=== PATIENT | female | born 1970 | race Caucasian/White ===

== ENCOUNTER 2019-01-03 19:28 | Emergency (ER) | payer SELFPAY ==
[2019-01-03] MEDS ORDERED: Insulin Regular 300 UNITS/3 ML VIAL ONE (20:20)
== END 2019-01-03 20:56 ==
LOC: ERS 19:28
DX: E11.65 Type 2 diabetes mellitus with hyperglycemia (principal); F41.9 Anxiety disorder, unspecified; I10 Essential (primary) hypertension; E78.00 Pure hypercholesterolemia, unspecified; F32.9 Major depressive disorder, single episode, unspecified; Z79.4 Long term (current) use of insulin; Z79.899 Other long term (current) drug therapy
CPT/HCPCS: 36416; 99282; J1815

== ENCOUNTER 2019-01-06 14:24 | Emergency (ER) | payer MEDICARE ==
[2019-01-06 15:53] LABS: #Lymphocytes 1.3 thou/uL (1.20-3.40); #Monocytes 0.4 thou/uL (0.11-0.59); #Neutrophils 4.8 thou/uL (1.40-6.50); %Basophils 0.7 % (0.0-1.0); %Eosinophils 0.1 % (0.0-10.0); %Lymphocytes 20.4 % (21.0-51.0); %Monocytes 5.5 % (0.0-10.0); %Neutrophils 73.3 % (42.0-75.0); Hemoglobin 14.5 g/dL (12.0-16.0); Mean Corpuscular HGB CONC 34.6 g/dL (32.0-36.0); Mean Corpuscular Hemoglobin 31.4 pg (27.0-31.0); Mean Corpuscular Volume 90.8 fL (78.0-98.0); Mean Platelet Volume 8.3 fL (7.4-10.4); Platelet Count 329 thou/uL (130-400); RBC Distribution Width 11.5 % (11.5-14.5); Red Blood Cell (RBC) Count 4.62 mill/uL (4.20-5.40); White Blood Cell (WBC) Count 6.5 thou/uL (4.8-10.8)
[2019-01-06] MEDS ORDERED: clonazePAM 1 MG TAB ONE (15:55)
[2019-01-06 16:16] LABS: Bilirubin Negative (Negative); Blood, Urine Negative (Negative); Clarity CLEAR (Clear); Glucose, Urine (Dipstick) >=1000 mg/dL (Negative); Leukocyte Negative (Negative); Nitrite Negative (Negative); Protein, Urine (Dipstick) Negative (Neg-Trace); Specific Gravity, Urine 1.029 (1.002-1.036); Urobilinogen 0.2 mg/dL (0.2-1.0)
[2019-01-06 16:18] LABS: Pregnancy Test - Urine (BHCG) Negative (Negative); Pregu Control Background? CLEAR/WHITE (CLR/WHITE); Pregu Control Bar Appear? YES (CONTROL BAR); Specific Gravity 1.029 (1.002-1.036)
[2019-01-06 16:18] LABS: Acetaminophen Less than 6.0 mcg/mL (10.0-30.0); Alcohol Less than 10 mg/dL (Less than 10); CK (CPK) 47 U/L (29-168); Salicylate Less than 8.0 mg/dL (15.0-30.0)
[2019-01-06 16:21] LABS: ALT (SGPT) 31 U/L (8-55); AST (SGOT) 19 U/L (5-34); Albumin 4.2 g/dL (3.5-5.0); Alkaline Phosphatase 196 U/L (40-150); Anion Gap 13 mmol/L (10-20); BUN (Urea Nitrogen) 16 mg/dL (7.0-18.7); Bilirubin, Total 0.3 mg/dL (0.2-1.2); Calc. Creatinine Clearance 0 mL/min (70-130); Calcium 10.1 mg/dL (7.8-10.44); Carbon Dioxide 21 mmol/L (22-29); Chloride 103 mmol/L (98-107); Estimated GFR-MDRD 53; Glucose 442 mg/dL (70-105); Lipase 40 U/L (8-78); Potassium 4.4 mmol/L (3.5-5.1); Protein, Total 7.2 g/dL (6.0-8.3); Sodium 133 mmol/L (136-145)
[2019-01-06 16:25] LABS: Amphetamine Detected (NotDetected); Barbiturates Screen Not Detected (NotDetected); Benzodiazepine Screen Not Detected (NotDetected); Cocaine Metabolite Screen Not Detected (NotDetected); Medtox Reader # READER 4; Methadone Not Detected (NotDetected); Methamphetamine Not Detected (NotDetected); Opiate Screen Not Detected (NotDetected); Phencyclidine (PCP) Not Detected (NotDetected); THC/Cannabinoid Screen Not Detected (NotDetected); Tricyclic Screen Not Detected (NotDetected)
[2019-01-06 16:26] LABS: Medtox Control Line Valid? VALID (VALID); Oxycodone Screen Not Detected (NotDetected)
--- NOTE | 2019-01-06 16:29 | RAD ---
AP VIEW CHEST: 01/06/19 HISTORY: Chest pain. Anxiety. AP view chest is obtained on 01/06/19. The lungs are well aerated. No evidence of active intrathoracic disease seen. No evidence of effusion s, pneumonia or pneumothorax seen. IMPRESSION: Unremarkable AP view chest. POS: [facility]
== END 2019-01-06 17:39 ==
LOC: ERS 14:24
DX: F41.9 Anxiety disorder, unspecified (principal); L02.213 Cutaneous abscess of chest wall; F15.10 Other stimulant abuse, uncomplicated; Z60.9 Problem related to social environment, unspecified; E11.9 Type 2 diabetes mellitus without complications; E78.00 Pure hypercholesterolemia, unspecified; F32.9 Major depressive disorder, single episode, unspecified; I10 Essential (primary) hypertension; Z79.4 Long term (current) use of insulin; Z79.899 Other long term (current) drug therapy
CPT/HCPCS: 36415; 36416; 71045; 80053; 80306; 80307; 81003; 81025; 82550; 83605; 83690; 84484; 85025; 93005; 94760

== ENCOUNTER 2019-01-10 14:02 | Emergency (ER) | payer MEDICARE, OTHER ==
[2019-01-10] MEDS ORDERED: Naproxen 500 MG TAB ONE (15:23)
--- NOTE | 2019-01-10 15:38 | RAD ---
LEFT ANKLE RADIOGRAPHS 3 VIEWS: DATE: 01/10/2019. PROVIDED CLINICAL HISTORY: Left ankle pain. FINDINGS: No comparisons. Remote ununited mildly distracted medial malleolar fracture. No evidence for an acu te fracture. Plantar calcaneal enthesophyte formation is noted. Alignment appears otherwise anatomi c. Joint spaces appear preserved. IMPRESSION: Remote ununited medial malleolar fracture. POS: [facility]
== END 2019-01-10 16:05 | disposition home or self-care (01) ==
LOC: ERS 14:02
DX: S82.52XA Displaced fracture of medial malleolus of left tibia, initial encounter for closed fracture (principal); E11.9 Type 2 diabetes mellitus without complications; E78.5 Hyperlipidemia, unspecified; I10 Essential (primary) hypertension; F32.9 Major depressive disorder, single episode, unspecified; F41.9 Anxiety disorder, unspecified

== ENCOUNTER 2019-01-11 10:06 | Emergency (ER) | payer MEDICARE, MEDICAID ==
[2019-01-11] MEDS ORDERED: Midazolam HCl 2 mg/2 ml Vial ONE (11:33)
[2019-01-11] MEDS ORDERED: Fentanyl 100 MCG/2 ML VIAL ONE (11:34)
== END 2019-01-11 11:51 | disposition home or self-care (01) ==
LOC: ERS 10:06
DX: M79.89 Other specified soft tissue disorders (principal); I10 Essential (primary) hypertension; E11.9 Type 2 diabetes mellitus without complications; F41.9 Anxiety disorder, unspecified; F32.9 Major depressive disorder, single episode, unspecified; E78.00 Pure hypercholesterolemia, unspecified
CPT/HCPCS: 99281; J2250; J3010

== ENCOUNTER 2019-01-22 14:31 | Emergency (ER) | payer MEDICARE, MEDICAID | END 2019-01-22 17:13 | disposition home or self-care (01) | LOC: ERS 14:31 | DX: L03.114 Cellulitis of left upper limb (principal); I10 Essential (primary) hypertension; E11.9 Type 2 diabetes mellitus without complications; Z79.4 Long term (current) use of insulin; Z79.899 Other long term (current) drug therapy | CPT/HCPCS: 99283 ==

== ENCOUNTER 2019-02-01 10:58 | Emergency (ER) | payer MEDICARE, OTHER ==
[2019-02-01] MEDS ORDERED: hydrOXYzine 25 MG TAB ONE (12:24)
--- NOTE | 2019-02-02 14:37 | EKG ---
Test Reason : CP Blood Pressure : / mmHG Vent. Rate : 078 BPM Atrial Rate : 078 BPM P-R Int : 194 ms QRS Dur : 084 ms QT Int : 376 ms P-R-T Axes : 030 -02 042 degrees QTc Int : 428 ms Normal sinus rhythm Inferior infarct , age undetermined Anterior infarct , age undetermined Abnormal ECG Confirmed by ANITA GRACIA D.O. ([id number]), news copy editor MAYRA NEVES ([id number]) on 02/02/2019 2:37:03 PM Referred By: Confirmed By:ANITA GRACIA D.O.
== END 2019-02-01 12:42 | disposition home or self-care (01) ==
LOC: ERS 10:58
DX: F41.9 Anxiety disorder, unspecified (principal); E11.9 Type 2 diabetes mellitus without complications; E78.5 Hyperlipidemia, unspecified; I10 Essential (primary) hypertension; F32.9 Major depressive disorder, single episode, unspecified; Z79.899 Other long term (current) drug therapy; Z79.4 Long term (current) use of insulin
CPT/HCPCS: 93005